=== PATIENT | male | born 1990 | race Caucasian/White ===

== ENCOUNTER → 2018-10-29 16:44 | Outpatient (CLI) | payer OTHER, SELFPAY ==
--- NOTE | 2018-10-29 16:44 | LES_PTH ---
PATIENT: DONTE HAILE LOC: [facility] U#:[id number] AGE/SX: 35/M ROOM: RE10/29/[address]: Dr. El Soria MD : 1990 BED: DIS: SPEC #: [id number] RECD: 10/29/18 19:14 STATUS: ÁNGELA NEREIDA #: [id number] SHERWIN: 10/29/18 16:[address]: El Soria DEPT: SURGICAL PATHOLOGY RECD BY: ePrez Myers Tissues: Skin of nose, NOS Procedures: Surgery Specimen Level IV HEADER OPERATION: Excision of nose lesion PRE-OP DIAGNOSIS: Nose lesion TISSUE SUBMITTED: Right nostril cavity lesion MICROSCOPIC DIAGNOSIS Right nostril cavity lesion, excisional biopsy: Consistent with squamous papilloma. KIMBERLY:antonella 11/02/18 MICROSCOPIC DESCRIPTION Slides are reviewed. GROSS DESCRIPTION Received in fixative is one container labeled with the patient's name and designated inside right nostril. The specimen consists of a piece of jiang-white skin, punch biopsy, measuring 0.3 cm in length and 0.3 cm in diameter. The specimen is totally submitted in one cassette. / SJ:rg 10/30/18 TC:1 CPT: 36668
== END ==
PROVIDERS: Referring Provider Otolaryngology; Visit Provider Otolaryngology
DX: J34.89 Other specified disorders of nose and nasal sinuses (principal)
CPT/HCPCS: 88305